=== PATIENT | female | born 1995 | race Caucasian/White ===

== ENCOUNTER 2018-12-27 05:20 | Emergency (ER) | payer BC ==
[2018-12-27 06:18] VITALS: O2SAT 98
--- NOTE | 2018-12-27 06:25 | ERPHSYRPT ---
- History of Present Illness Source: patient Exam Limitations: clinical condition Patient Subjective Stated Complaint: pt states she had some abd pain yesterday that got better and then came back this morning. states the pain is mid to lt abd and goes to her lower back Triage Nursing Assessment: pt alert and oriented, answers questions approp. pt ambulatory with steady gait noted. respirations nonlabored wiht lungs cta. abd soft and tender to palpation per pt. pt denies any vaginal disharge or bleeding. Timing/Duration: today Activites at Onset: none Quality: sharpness Onset Location: suprapubic Pain Radiation: none Severity of Pain-Max: moderate Prior abdominal problems: recent trauma Sexual intercourse history: non-contributory Modifying Factors: Improves With: nothing Associated Symptoms: denies symptoms Hx Tetanus, Diphtheria Vaccination/Date Given: Yes Hx Influenza Vaccination/Date Given: Yes Hx Pneumococcal Vaccination/Date Given: No <MICHELE ZAMUDIO - Last Filed: 12/27/18 07:21> <URI RICH - Last Filed: 12/27/18 07:43> - History of Present Illness Time Seen by Provider: 12/27/18 06:20 Physician History: PATIENT IS A -4, PARA-3, -1, 10 WEEKS GESTATION COMPLAINS OF LOWER ABDOMINAL PAIN SINCE YESTERDAY, DENIES VAGINAL BLEEDING OR DISCHARGE. DENIES URINARY SYMPTOMS, FEVER OR CHILLS. (MICHELE ZAMUDIO) Allergies/Adverse Reactions: triamcinolone [From Kenalog] Allergy (Intermediate, Verified 12/27/18 07:40) - Review of Systems Constitutional: No Fever, No Chills Eyes: No Symptoms Ears, Nose, & Throat: No Symptoms Respiratory: No Symptoms, No Cough, No Dyspnea Cardiac: No Symptoms, No Chest Pain, No Edema, No Syncope Abdominal/Gastrointestinal: No Abdominal Pain, No Nausea, No Vomiting, No Diarrhea Genitourinary Symptoms: No Symptoms, Other (DENIES VAGINAL BLEEDING OR VAGINAL DISCHARGE), No Dysuria Musculoskeletal: No Symptoms, No Back Pain, No Neck Pain Skin: No Rash Neurological: No Dizziness, No Focal Weakness, No Sensory Changes Psychological: No Symptoms Endocrine: No Symptoms All Other Systems: Reviewed and Negative <MICHELE ZAMUDIO - Last Filed: 12/27/18 07:21> - Past Medical History Pertinent Past Medical History: No - Past Surgical History Past Surgical History: Yes Other Surgical History: pda as a child - Social History Smoking Status: Never smoker Exposure to second hand smoke: No Drug Use: none Patient Lives Alone: Yes - Female History Hx Last Menstrual Period: 10/19 Hx Now: Yes Expected Date of Delivery: 07/23/19 Gestational Age: 10 weeks <MICHELE ZAMUDIO - Last Filed: 12/27/18 07:21> - Physical Exam General Appearance: no apparent distress, alert Eye Exam: PERRL/EOMI, eyes nml inspection Ears, Nose, Throat Exam: normal ENT inspection, TMs normal, pharynx normal, moist mucous membranes Neck Exam: normal inspection, non-tender, supple, full range of motion Respiratory Exam: normal breath sounds, lungs clear, No respiratory distress Cardiovascular Exam: regular rate/rhythm, normal heart sounds, normal peripheral pulses Gastrointestinal/Abdomen Exam: soft, normal bowel sounds, No tenderness ( SUPRAPUBIC TENDERNESS, NO GUARDING OR REBOUND TENDERNESS), No mass Pelvic Exam: normal external exam, other (NO VAGINAL BLOOD NOTED IN VAGINAL VAULT, UTERINE SIZE 8-9 WEEKS, NO CERVICAL MOTION TENDERNESS) Back Exam: normal inspection, normal range of motion, No CVA tenderness, No vertebral tenderness Extremity Exam: normal inspection, normal range of motion, pelvis stable Neurologic Exam: alert, oriented x 3, cooperative, 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, normal mood/affect, sensation nml, No motor deficits Skin Exam: normal color, warm, dry Lymphatic Exam: No adenopathy SpO2: 98 <MICHELE ZAMUDIO - Last Filed: 12/27/18 07:21> - Nursing Vital Signs Nursing Vital Signs: Initial Vital Signs Temperature 99.0 F 12/27/18 06:04 Pulse Rate 82 12/27/18 06:04 Respiratory Rate 18 12/27/18 06:04 Blood Pressure 115/67 12/27/18 06:04 O2 Sat by Pulse Oximetry 98 12/27/18 06:04 Pain Scale Pain Intensity 5 Ordered Tests: Active Orders 24 hr Category Date Time Status CBC W DIFF Stat Lab 12/27/18 06:55 Completed CULTURE,URINE Stat Lab 12/27/18 06:55 Received HCG QUALITATIVE,SERUM Stat Lab 12/27/18 06:55 Completed UA W/RFX UR CULTURE Stat Lab 12/27/18 06:55 Completed Medication Summary Discontinued Medications Generic Name Dose Route Start Last Admin Trade Name Freq PRN Reason Stop Dose Admin Acetaminophen 650 mg 12/27/18 07:38 Tylenol 325 Mg PO 12/27/18 07:39 STAT STA Cephalexin HCl 500 mg 12/27/18 07:38 Keflex 500 Mg PO 12/27/18 07:39 STAT ONE Lab/Rad Data: Laboratory Result Diagrams 12/27/18 06:55 Laboratory Results 12/27/18 12/27/18 12/27/18 Range/Units 06:55 06:55 06:55 WBC 6.2 (4.0-10.5) K/mm3 RBC 4.63 (4.1-5.4) M/mm3 Hgb 14.1 (12.0-16.0) gm/dl Hct 41.7 (35-47) % MCV 90.1 (78-100) fl MCH 30.5 (26-32) pg MCHC 33.8 (32-36) g/dl RDW 12.3 (11.5-14.0) % Plt Count 188 (150-450) K/mm3 MPV 9.9 H (6-9.5) fl Gran % 62.8 (36.0-66.0) % Eos # (Auto) 0.08 (0-0.5) Absolute Lymphs (auto) 1.71 (1.0-4.6) Absolute Monos (auto) 0.52 (0.0-1.3) Lymphocytes % 27.4 (24.0-44.0) % Monocytes % 8.3 (0.0-12.0) % Eosinophils % 1.3 (0.00-5.0) % Basophils % 0.2 (0.0-0.4) % Absolute Granulocytes 3.91 (1.4-6.9) Basophils # 0.01 (0-0.4) Serum , Qual POSITIVE (Negative) Urine Color YELLOW (YELLOW) Urine Appearance CLEAR (CLEAR) Urine pH 5.0 (5-6) Ur Specific [place] 1.019 (1.005-1.025) Urine Protein NEGATIVE (Negative) Urine Ketones NEGATIVE (NEGATIVE) Urine Blood MODERATE (0-5) Cristhian/ul Urine Nitrite NEGATIVE (NEGATIVE) Urine Bilirubin NEGATIVE (NEGATIVE) Urine Urobilinogen NEGATIVE (0-1) mg/dL Ur Leukocyte Esterase TRACE (NEGATIVE) Urine WBC (Auto) 11-15 (0-5) /HPF Urine RBC (Auto) 3-5 (0-2) /HPF U Epithel Cells (Auto) RARE (FEW) /HPF Urine Bacteria (Auto) FEW (NEGATIVE) /HPF U Non-Squamous Epi Cells RARE (FEW) /HPF Urine Mucus (Auto) SLIGHT (NEGATIVE) /HPF Urine Culture Reflexed YES (NO) Urine Glucose NEGATIVE (NEGATIVE) mg/dL <MICHELE ZAMUDIO - Last Filed: 12/27/18 07:21> - Progress Progress: unchanged Air Movement: good Blood Culture(s) Obtained: No Antibiotics given: Yes Counseled pt/family regarding: lab results, diagnosis, need for follow-up <URI RICH - Last Filed: 12/27/18 07:43> - Progress Progress Note: 12/27/18 07:21 PATIENT CARE ENDORSED TO DR RICH AT 0720 (MICHELE ZAMUDIO) 12/27/18 07:39 u/s from [facility] dated 12/08/18 shows a single live intrauterine . as of that date gestation is 6 weeks, 5days. (UIR RICH) <MICHELE ZAMUDIO - Last Filed: 12/27/18 07:21> - Departure Departure Disposition: Home Critical Care Time: No <URI RICH - Last Filed: 12/27/18 07:43> - Departure Clinical Impression: UTI (urinary tract infection) Condition: Stable Referrals: SANTO SYED MD [Primary Care Provider] - Additional Instructions: drink plenty of fluids. take medications as prescribed. follow up Saturday with associate media director for further management. return to ED if symptoms worsen Prescriptions: Cephalexin Mh 500 mg [Keflex 500 mg] 500 mg PO TID #21 capsule
[2018-12-27 07:07] LABS: BASOPHIL % 0.2 % (0.0-0.4); Basophil (Absolute #) 0.01 (0-0.4); Eosinophil % 1.3 % (0.00-5.0); Eosinophil (Absolute #) 0.08 (0-0.5); Granulocyte Absolute (ANC) 3.91 (1.4-6.9); Granulocytes % 62.8 % (36.0-66.0); Hematocrit 41.7 % (35-47); Hemoglobin 14.1 gm/dl (12.0-16.0); Lymphocyte (Absolute #) 1.71 (1.0-4.6); Lymphocytes % 27.4 % (24.0-44.0); Mean Cell Volume 90.1 fl (78-100); Mean Corpuscular Hemoglobin 30.5 pg (26-32); Mean Corpuscular Hgb Concent. 33.8 g/dl (32-36); Mean Platelet Volume 9.9 fl (6-9.5); Monocyte (Absolute #) 0.52 (0.0-1.3); Monocytes % 8.3 % (0.0-12.0); Platelet Count 188 K/mm3 (150-450); Red Blood Count 4.63 M/mm3 (4.1-5.4); Red Cell Distribution Width 12.3 % (11.5-14.0); White Blood Count 6.2 K/mm3 (4.0-10.5)
[2018-12-27 07:10] LABS: Appearance CLEAR (CLEAR); Bacteria FEW /HPF (NEGATIVE); Bilirubin NEGATIVE (NEGATIVE); Blood MODERATE Ery/ul (0-5); Epithelial Cells RARE /HPF (FEW); Glucose NEGATIVE (NEGATIVE); Ketones NEGATIVE (NEGATIVE); Leukocyte Esterase TRACE (NEGATIVE); Mucus SLIGHT /HPF (NEGATIVE); Nitrite NEGATIVE (NEGATIVE); Non-Squamous Epithelial Cells RARE /HPF (FEW); Protein,Urine Dip NEGATIVE (Negative); Specific Gravity 1.019 (1.005-1.025); Urobilinogen NEGATIVE mg/dL (0-1)
[2018-12-27] MEDS ORDERED: TYLENOL 325 MG PO STA (07:38)
[2018-12-27] MEDS ORDERED: KEFLEX 500 MG PO ONE (07:38)
[2018-12-27] MEDS ORDERED: KEFLEX 500 MG ONE (07:43)
[2018-12-27] MEDS ORDERED: TYLENOL 325 MG ONE (07:43)
[2018-12-27 07:53] VITALS: BP 116/70; PULSE 78
== END 2018-12-27 08:01 | disposition home or self-care (01) ==
LOC: ED 05:20
DX: O23.41 Unspecified infection of urinary tract in pregnancy, first trimester (principal)
CPT/HCPCS: 36415; 81001; 81025; 85025; 87077; 87086; 87186; 99283; A9270-GY

== ENCOUNTER 2025-01-23 18:44 | Emergency (ER) | payer BC ==
--- NOTE | 2025-01-23 20:20 | ERPHSYRPT ---
- History of Present Illness Time Seen by Provider: 01/23/25 20:19 Source: patient, family Exam Limitations: no limitations Physician History: This is a 30-year-old white female patient who is 4 days out from a left partial thyroidectomy and isthmusectomy. She has a drain in place. She was concerned today because she felt a little tightness in the area and the amount of drainage has decreased in the last 4 days. She has no breathing difficulties. She has not had any wheezing or stridor. She does have an appointment to see her general surgeon, Dr. Javier Gómez, on 01/25/2025. She wanted the wound site and drainage to be evaluated. Patient has no change in her voice. Patient has no difficulty swallowing. Timing/Duration: day(s) (4) Severity: mild Associated Symptoms: denies symptoms, No shortness of breath, No chest pain, No fever Allergies/Adverse Reactions: triamcinolone [From Kenalog] Allergy (Intermediate, Verified 01/23/25 20:36) Hx Tetanus, Diphtheria Vaccination/Date Given: Yes Hx Influenza Vaccination/Date Given: Yes Hx Pneumococcal Vaccination/Date Given: No Travel Risk - International Travel Have you traveled outside of the country in past 3 weeks: No - Emerging Infectious Disease Are you exhibiting symptoms associated with any current EIDs: No - Review of Systems Constitutional: No Symptoms Eyes: No Symptoms Ears, Nose, & Throat: No Symptoms Respiratory: No Symptoms Cardiac: No Symptoms Abdominal/Gastrointestinal: No Symptoms Genitourinary Symptoms: No Symptoms Musculoskeletal: No Symptoms Skin: No Symptoms Neurological: No Symptoms Psychological: No Symptoms Endocrine: No Symptoms Hematologic/Lymphatic: No Symptoms Immunological/Allergic: No Symptoms All Other Systems: Reviewed and Negative - Past Medical History Pertinent Past Medical History: No - Past Surgical History Past Surgical History: Yes Other Surgical History: pda as a child - Social History Smoking Status: Never smoker Exposure to second hand smoke: No Drug Use: none Patient Lives Alone: Yes - Nursing Vital Signs Nursing Vital Signs: Initial Vital Signs Temperature 98.7 F 01/23/25 20:22 Pulse Rate 79 01/23/25 20:22 Respiratory Rate 16 01/23/25 20:22 Blood Pressure 128/85 01/23/25 20:22 O2 Sat by Pulse Oximetry 97 01/23/25 20:22 Pain Scale Pain Intensity 0 - Physical Exam General Appearance: no apparent distress, alert, anxiety Eye Exam: PERRL/EOMI, eyes nml inspection Ears, Nose, Throat Exam: normal ENT inspection, moist mucous membranes Neck Exam: supple, full range of motion, other (The postoperative partial thyroidectomy and isthmusectomy skin incision site is clean dry and intact. The DUNG drain is intact and draining mostly serous clear drainage and small amount.) Respiratory Exam: normal breath sounds, lungs clear, airway intact, No chest tenderness, No respiratory distress, No wheezing, No stridor Cardiovascular Exam: regular rate/rhythm, normal heart sounds, normal peripheral pulses Gastrointestinal/Abdomen Exam: No tenderness Pelvic Exam: not done Rectal Exam: not done Back Exam: normal inspection, normal range of motion, CVA tenderness Extremity Exam: normal inspection, normal range of motion, pelvis stable Neurologic Exam: alert, oriented x 3, cooperative, archivist political history II-XII nml as tested, normal mood/affect, nml cerebellar function, nml station & gait, sensation nml Skin Exam: normal color, warm, dry Lymphatic Exam: No adenopathy SpO2 Interpretation: normal O2 Delivery: Room Air - Course Nursing assessment & vital signs reviewed: Yes - Progress Progress: unchanged Progress Note: 01/23/25 20:45 I medical decision making and the assignment of low complexity is based on review of the patient's past medical history, review of the patient's medication list, review the patient drug allergy list, history present illness and physical findings on examination. The workup in this patient does not necessitate laboratory radiographic studies. I reassured the patient and deflated the DUNG bulb and cleared the drain tube of debris. I then squeezed the DUNG bulb to create suction. Differential diagnosis includes but is not limited to wound infection, postoperative fluid collection, drainage tube malfunction 01/23/25 20:48 Counseled pt/family regarding: diagnosis, need for follow-up Medical Desision Making - Independent Historian Additional History obtained from: Relative/friend - Diagnostic Testing Diagnostic test were ordered, analyzed, and reviewed by me: No - Risk of complications Minimal Risk: Minimal risk of morbidity - Departure Departure Disposition: Home Clinical Impression: Encounter for postoperative wound check Condition: Stable Critical Care Time: No Additional Instructions: Continue to follow the postoperative wound care and DUNG drain instructions. Keep your appointment with Dr. Josue on 01/25/2025. If you have any further concerns, return to the emergency department for reevaluation.
[2025-01-23 20:23] VITALS: TEMP 98.7
[2025-01-23 21:05] VITALS: BP 123/85; PULSE 73; RESP 18; O2SAT 99
== END 2025-01-23 21:05 | disposition home or self-care (01) ==
LOC: ED 18:44
DX: Z48.01 Encounter for change or removal of surgical wound dressing (principal)
CPT/HCPCS: 99282